=== PATIENT | male | born 1985 | race African-American/Black ===

== ENCOUNTER 2017-06-21 20:55 | Emergency (ER) | payer OTHER ==
[~2017-06-21] VITALS: Ht 177.8 cm; Wt 77.1 kg
[2017-06-21 20:59] VITALS: BP 131/96
== END 2017-06-21 21:49 | disposition home or self-care (01) ==
LOC: M.ERS 20:55
DX: R19.7 Diarrhea, unspecified (principal); Z91.013 Allergy to seafood

== ENCOUNTER → 2018-06-24 | Emergency (ER) | payer OTHER ==
[~2018-06-24] VITALS: Ht 175.3 cm; Wt 77.1 kg
[~2018-06-24] MED LIST: BACTRIM DS TAB1 EACH PO
[2018-06-24 08:28] VITALS: BP 145/104
== END ==
LOC: M.ERS 08:20
DX: K60.2 Anal fissure, unspecified (principal); Z91.013 Allergy to seafood